=== PATIENT | female | born 1975 | race Caucasian/White ===

== ENCOUNTER 2019-11-01 08:13 | Emergency (ER) | payer OTHER ==
[~2019-11-01] VITALS: Ht 167.6 cm; Wt 52.2 kg
--- NOTE | ~2019-11-01 | EKG ---
[place] [address] ELECTROCARDIOGRAM REPORT Name: ANGELFANTA Room: [facility]#: [id number] Admission: 11/01/19 Attend Phys: Discharge: 11/01/19 Date of : 71 Date of Service: 11/01/19822 Report #: [id number] THIS REPORT FOR: cc: NENO BARRAZA MD, CHADWICK MD Epiphany, Epiphany MD ~ THIS REPORT FOR: //name// [facility] ED Test Date: 2019-11-01 Test Time: 08:23:58 Pat Name: FANTA ORTIZ Department: Room: Gender: F Search Analyst: [facility] [place] : 1975 Requested By: Darinel Romero Order Number: [id number] MD: Measurements Intervals Crum Rate: 114 P: 73 OK: 159 QRS: 59 QRSD: 94 T: 43 QT: 332 QTc: 458 Interpretive Statements Sinus tachycardia No previous ECG available for comparison [email or web address] By: 2 08 Epiphany Epiphany, /EPI
[2019-11-01] MEDS ORDERED: SUPER THERAVIT1 EACH PO (08:23)
[2019-11-01] MEDS ORDERED: BIRTH CONTROL (08:23)
[2019-11-01 08:49] LABS: ABSOLUTE BASOPHILS 0.1 thou/uL (0.0-0.2); ABSOLUTE EOSINOPHILS 0.1 thou/uL (0.0-0.7); ABSOLUTE MONOCYTES 0.5 thou/uL (0.0-1.2); ABSOLUTE NEUTROPHILS 7.2 thou/uL (1.6-8.1); BASOPHILS 0.5 %; EOSINOPHILS 1.1 %; HEMATOCRIT 43.8 % (37.0-47.0); LYMPHOCYTES 20.1 %; MCH 28.3 pg (26.0-34.0); MCHC 34.2 g/dL (28.0-37.0); MCV 82.7 fL (80.0-100.0); MONOCYTES 5.1 %; MPV 7.5 fl. (7.2-11.1); NUCLEATED RBCS 0 /100WBC; PLATELET COUNT* 274 thou/uL (150-400); POLYS 73.2 %; RDW-CV 12.9 % (10.5-14.5); WBC 9.9 thou/uL (4.0-11.0)
[2019-11-01 08:59] LABS: CREATININE 0.9 mg/dL (0.6-1.3); POTASSIUM 3.5 mmol/L (3.5-5.1)
[2019-11-01 09:03] LABS: APTT 25.5 Seconds (25.0-31.3); PROTIME 10.2 Seconds (9.20-11.50)
[2019-11-01 09:12] LABS: CK-MB MASS 0.5 ng/mL (<0.5-3.6); MAGNESIUM 1.7 mg/dL (1.8-2.4); TOTAL BILIRUBIN 0.6 mg/dL (<0.1-1.0); TOTAL PROTEIN 8.1 g/dL (6.4-8.2)
[2019-11-01 09:30] VITALS: BP 135/61
== END 2019-11-01 09:30 | disposition home or self-care (01) ==
LOC: M.ERS 08:13
PROVIDERS: Family Medicine
DX: R07.89 Other chest pain (principal); F41.9 Anxiety disorder, unspecified